=== PATIENT | female | born 1945 | race Caucasian/White ===

== ENCOUNTER 2019-01-27 19:55 | Emergency (ER) | payer MEDICAID ==
[~2019-01-27] VITALS: Ht 152.4 cm; Wt 76.0 kg
[~2019-01-27 19:55] MED LIST: HYDR-4011 PO; METH750T93 PO; PRED20TA PO; TRAM50TA2 PO
[2019-01-27 20:14] VITALS: Ht 152.4 cm; Wt 76.0 kg
[2019-01-27] MEDS ORDERED: ONDANSETRON 4 MG INJ IV STA (21:28)
[2019-01-27] MEDS ORDERED: HYDROmorphONE 1 MG/ML SYG IV STA (21:28)
[2019-01-27] MEDS ORDERED: METHYLPREDNISOLONE 125 MG INJ IV ONE (21:30)
[2019-01-27] MEDS ORDERED: NICARDipine HCL 30 MG CAPSULE PO ONE (23:00)
[2019-01-28 00:15] VITALS: BP 161/79; PULSE 78; RESP 16
== END 2019-01-28 00:16 | disposition home or self-care (01) ==
LOC: E/R 19:55
DX: M54.12 Radiculopathy, cervical region (principal); I10 Essential (primary) hypertension; E11.9 Type 2 diabetes mellitus without complications; R20.2 Paresthesia of skin
CPT/HCPCS: 36415; 70450; 72125; 80053; 85025; 96374; 96375; J1170; J2405; J2930; Z7502; Z7610